=== PATIENT | male | born 1960 | race Caucasian/White ===

== ENCOUNTER 2021-06-10 08:20 | Outpatient (CLI) | payer BC ==
[~2021-06-10 08:20] MED LIST: REGADENOSON 0.4 MG/5 ML SYRINGE ONE
== END 2021-06-10 23:59 | disposition home or self-care (01) ==
LOC: CFH 08:20
PROVIDERS: ATTEND Internal Medicine Cardiovascular Disease
DX: Z01.810 Encounter for preprocedural cardiovascular examination (principal)
CPT/HCPCS: 78452; 93017; A9502; J2785